=== PATIENT | female | born 1980 | race Caucasian/White ===

== ENCOUNTER 2018-05-23 22:13 | Emergency (ER) | payer SELFPAY ==
[~2018-05-23] VITALS: Ht 162.5 cm; Wt 54.4 kg
--- NOTE | ~2018-05-23 | EKG ---
[place], [place] ELECTROCARDIOGRAM REPORT NAME: MADELINE PANTOJA UNIT #: [id number] ROOM: DOCTOR: EPIPHANY DRAFT REPORT BIRTHDATE: [birth year] [facility] Test Date: 2018-05-23 Test Time: 22:53:49 Pat Name: MADELINE PANTOJA Department: Room: Gender: F [employer] Operator: Kandi Wright : 1980 Requested By: KEYON GEE Order Number: [id number] Reading MD: Sachin Mayen MD Measurements Intervals [place] Rate: 109 P: 80 [place]: 99 QRS: 73 QRSD: 95 T: 65 QT: 324 QTc: 437 Interpretive Statements Sinus tachycardia Nonspecific ST T changes Electronically Signed On 05-25-2018 8:29:10 PDT by Sachin Mayen MD CM:EKGRPT:ELECTROCARDIOGRAM REPORT [id number] KEYON OLIVEIRA DRAFT REPORT KEYON GEE DO
[~2018-05-23 22:13] MED LIST: ADVAIR 250/501 EA INH; OXYCODONE HYDRO30 MG PO; SEPTDS PO
[2018-05-23 22:58] LABS: BASO % 0.4 % (0.0-1.0); EOS # 0.1 10*3/uL (0.0-0.4); EOS % 0.5 % (1.0-4.0); HEMATOCRIT 37.1 % (37.0-47.0); HEMOGLOBIN 12.7 g/dl (12.0-16.0); LYMPH # 1.7 10*3/uL (1.3-4.4); LYMPH % 15.3 % (27.0-41.0); MEAN CELL VOLUME 79.3 fl (81.0-99.0); MEAN CORPUSCULAR HGB 27.1 pg (27.0-31.0); MEAN CORPUSCULAR HGB CONC 34.2 g/dl (33.0-37.0); MEAN PLATELET VOLUME 8.5 fl (9.6-12.3); MONO # 0.2 10*3/uL (0.1-1.0); MONO % 1.7 % (3.0-9.0); NEUT # 9.1 10*3/uL (2.3-7.9); NEUT % 81.8 % (47.0-73.0); PLATELET COUNT AUTOMATED 236 10*3/uL (130-400); RED BLOOD COUNT 4.68 10*6/uL (4.10-5.10); RED CELL DISTRI WIDTH 15.2 % (0-14.5); WHITE BLOOD COUNT 11.1 10*3/uL (4.8-10.8)
[2018-05-23 23:19] LABS: ALBUMIN 3.4 gm/dl (3.1-4.5); ALKALINE PHOSPHATASE 87 U/L (45-117); BUN 15 mg/dl (7-24); CHLORIDE 105 mmol/L (98-107); CREATININE 0.48 mg/dL (0.55-1.02); POTASSIUM 2.9 mmol/L (3.5-5.1); SGOT/AST 9 IU/L (3-35); SGPT/ALT 10 U/L (12-78); SODIUM 138 mmol/L (136-145); TOTAL PROTEIN 8.5 gm/dL (6.4-8.2)
[2018-05-23 23:20] LABS: BETA-HCG, QUANT < 1.0 mIU/mL (1-3); TROPONIN I < 0.015 ng/ml (<0.045)
== END 2018-05-24 00:31 | disposition home or self-care (01) ==
LOC: ED 22:13
PROVIDERS: Student in an Organized Health Care Education/Training Program
DX: R07.81 Pleurodynia (principal); R06.02 Shortness of breath; M54.9 Dorsalgia, unspecified; Z88.1 Allergy status to other antibiotic agents; Z79.2 Long term (current) use of antibiotics; Z79.899 Other long term (current) drug therapy